=== PATIENT | male | born 1995 | race Caucasian/White ===

== ENCOUNTER 2023-02-08 02:39 | Emergency (ER) | payer MEDICAID ==
[~2023-02-08] VITALS: Ht 172.7 cm; Wt 67.1 kg
[2023-02-08 02:51] VITALS: BP_SYST 131; PULSE 67; RESP 18; TEMP 98.7; O2SAT 100
[2023-02-08] MEDS ORDERED: KETOROLAC TROMETHAMINE 60 MG/2 ML VIAL IM ONE (03:00)
[2023-02-08] MEDS ORDERED: PENICILLIN G BENZATHINE 1.2 MMU/2 ML SYR IM ONE (03:00)
[2023-02-08] MEDS ORDERED: IBUP-1969 PO (03:05)
[2023-02-08 03:58] VITALS: BP_SYST 127; PULSE 86; RESP 20; TEMP 97.7; O2SAT 96
== END 2023-02-08 03:58 | disposition home or self-care (01) ==
LOC: SED 02:39
DX: J02.9 Acute pharyngitis, unspecified (principal); Z79.899 Other long term (current) drug therapy
CPT/HCPCS: 99284; 96372; J0561; J1885